=== PATIENT | male | born 1965 | race Caucasian/White ===

== ENCOUNTER → 2017-08-06 | Outpatient (CLI) | payer BC, OTHER | END | disposition home or self-care (01) | LOC: C.RDSM 09:00 | PROVIDERS: ATTEND Orthopaedic Surgery | DX: M25.561 Pain in right knee (principal) ==

== ENCOUNTER → 2017-08-13 | Outpatient (CLI) | payer OTHER ==
--- NOTE | 2017-08-13 08:18 | DIAGNOSTIC IMAGING REPORT ---
R LOWER EXT JOINT WITHOUT CLINICAL HISTORY: 52 years-old Male presenting with R KNEE OSTEOCHONDRAL DEFECT FEMORAL CONDYLE. TECHNIQUE: Multisequence, multiplanar MR imaging of the right knee was performed without the use of intravenous contrast. IV contrast: None. COMPARISON: Plain radiographs from 08/06/2017. FINDINGS: Localizer images: Unremarkable. Bone marrow: Bony edema noted at the anterior weightbearing surface of the lateral femoral condyle involving the lateral trochlea. Focal full-thickness articular cartilage fissuring at the inferior portion of the lateral trochlea with subjacent subchondral defect (series 5 image 21). This measures 5 mm. There is a curvilinear hypointense demarcation of this region. Extending along the inferior aspect towards the anterior weightbearing portion of the lateral femoral condyle is cystic change. Articular cartilage: Full-thickness cartilage fissuring at the inferior extent of the lateral trochlea as mentioned above. Minimal irregularity and increased signal intensity within the articular cartilage of the lateral patellar facet (grade 1 cartilage injury). Menisci: Blunting of the free edge of the body of the lateral meniscus (series 9 image 19), likely implying limited longitudinally oriented focal tear. Medial meniscus intact. Cruciate ligaments: Anterior and posterior cruciate ligaments intact. Collateral ligaments: Medial collateral ligament intact. Increased signal intensity and thickening of the insertional fibers of the popliteus tendon with linear intrasubstance fluid signal intensity (series 9 image 20). The remainder of the lateral collateral ligament complex including the biceps femoris tendon, fibular collateral ligament, and iliotibial band intact. Quadriceps and patellar tendons: Quadriceps and patellar tendons intact. Medial and lateral patellar retinacula intact. Joint effusion: Small knee joint effusion. No popliteal cyst. Muscle: Normal muscle bulk and muscle signal intensity. Superficial soft tissue: No subcutaneous edema. IMPRESSION: 1. Osteochondral lesion suspected at the inferior portion of the lateral trochlea with surrounding bony edema and subchondral cystic change extending towards the anterior weightbearing portion of the lateral femoral condyle. No evidence of instability. 2. Limited longitudinally oriented focal tear of the free edge of the body of the lateral meniscus suspected. 3. Intrasubstance tear and tendinosis of the popliteus tendon. 4. Small knee joint effusion Electronically signed by: Shiva Louise M.D. 08/13/2017 8:17 AM Dictated Date/Time: 08/13/2017 8:06 AM
== END | disposition home or self-care (01) ==
LOC: C.MRIBC 06:54
PROVIDERS: ATTEND Orthopaedic Surgery
DX: M95.8 Other specified acquired deformities of musculoskeletal system (principal); M25.461 Effusion, right knee; S86.811A Strain of other muscle(s) and tendon(s) at lower leg level, right leg, initial encounter; X58.XXXA Exposure to other specified factors, initial encounter